=== PATIENT | male | born 1975 | race Two or more races ===

== ENCOUNTER 2022-10-29 07:05 | Day surgery (SDC) | payer OTHER ==
[2022-10-23 16:04] LABS: BASOPHILS # (AUTO) 0.1 X10'3 (0-0.2); BASOPHILS % (AUTO) 0.7 % (0-1); EOSINOPHILS # (AUTO) 0.1 X10'3 (0-0.9); LYMPHOCYTES # (AUTO) 2.3 X10'3 (1.1-4.8); LYMPHOCYTES % (AUTO) 32.7 % (21-51); MEAN CORPUSCULAR HEMOGLOBIN 30.9 PG (27.0-31.0); MEAN CORPUSCULAR HGB CONC 33.8 g/dL (33.0-36.5); MEAN CORPUSCULAR VOLUME 91.4 FL (78-98); MEAN PLATELET VOLUME 7.9 FL (7.4-10.4); MONOCYTES # (AUTO) 0.6 X10'3 (0-0.9); MONOCYTES % (AUTO) 8.8 % (2-12); NEUTROPHILS # (AUTO) 4.1 X10'3 (1.8-7.7); NEUTROPHILS % (AUTO) 56.8 % (42-75); PRE OP HEMOGLOBIN 15.9 g/dL (14.0-17.9); PRE OP PLATELET COUNT 284 X10'3 (140-440); RED BLOOD COUNT 5.14 X10'6 (4.70-6.10); RED CELL DISTRIBUTION WIDTH 13.7 % (11.5-14.5)
[2022-10-23 16:23] LABS: ALBUMIN 4.3 G/DL (3.4-5.0); ALBUMIN/GLOBULIN RATIO 1.1 (1.1-1.5); ALKALINE PHOSPHATASE 52 IU/L (46-116); BLOOD UREA NITROGEN 16 MG/DL (7-18); BUN/CREATININE RATIO 19.8 (5.4-32.0); CALCIUM 9.1 MG/DL (8.5-10.1); CHLORIDE 103 MMOL/L (99-107); CREATININE 0.81 MG/DL (0.60-1.10); PRE OP ALT 24 U/L (30-65); PRE OP ANION GAP 10 (8-16); PRE OP AST 14 U/L (10-37); PRE OP GLUCOSE 100 MG/DL (70-104); PRE OP POTASSIUM 4.1 MMOL/L (3.4-5.1); PRE OP SODIUM 140 MMOL/L (135-145); TOTAL CARBON DIOXIDE 27.4 MMOL/L (24-32); TOTAL PROTEIN 8.3 G/DL (6.4-8.2); eGFR > 90 ML/MIN
[2022-10-29] VITALS (29 sets, daily range): BP systolic 99–140; BP diastolic 61–96
[~2022-10-29] VITALS: Ht 167.6 cm; Wt 88.0 kg
[2022-10-29] MEDS: potassium cl 20mEq in 1/2 NS 1,000 ML IV SCH ×4 (06:50→17:20)
[~2022-10-29 07:05] MED LIST: BACL10TA2 PO; HYDR-3964 PO; HYDROmorphone 1 mg/ml syringe IV PRN; HYDROmorphone inj. 0.5 MG/0.5 ML DISP.SYRIN IV PRN; acetaminophen 325mg tablet PO ONE; acetaminophen 325mg tablet PO PRN; baclofen 10mg tablet PO PRN; bisacodyl 10mg suppository rectal RC PRN; ceFAZolin inj. 2,000 MG in dextrose 5%-water 100 ML IV ONE; celeCOXIB 100mg capsule PO ONE; diphenhydrAMINE 25mg capsule PO PRN; famotidine 20mg tablet PO ONE; gabapentin 300mg capsule PO ONE; magnesium hydroxide 30ml (MOM) UD suspension PO PRN; metoclopramide 5 mg/ml inj IV ONE; naloxone 0.4 mg/ml inj IV PRN; ondansetron/PF 4mg/2ml inj IV PRN; oxyCODONE SR 10mg (sust. release) tab -2 tabs (20mg) PO ONE; tranexamic acid inj. 1,000 MG in normal saline 100ml IV soln 90 ML IV ONE; tranexamic acid inj. 1,000 MG in normal saline IV soln 100ML IV ONE; vancomycin 1,500 MG in NS 300ml IV soln IV ONE
--- NOTE | 2022-10-29 07:49 | NUR ---
csm intact, pulses marked, viseo watched, ointment not ordered
[2022-10-29] MEDS: ringers solution, lacted 1,000 ML IV SCH ×3 (07:53→16:55)
[2022-10-29] MEDS ORDERED: ketorolac trometh. 30mg/ml inj. ONE (09:52)
[2022-10-29] MEDS ORDERED: ROPIVAcaine 0.5% (5mg/ml) 30ml vial ONE ×2 (09:52→11:48)
[2022-10-29] MEDS ORDERED: epiNEPHrine 1 mg/ml inj ONE (09:53)
[2022-10-29] MEDS ORDERED: vancomycin 1,000mg inj ONE (09:53)
[2022-10-29] MEDS ORDERED: cloNIDine hcl/PF 100mcg/ml inj ONE (09:53)
[2022-10-29] MEDS ORDERED: fentaNYL/PF 50MCG/1 ML 2ML syringe ONE (10:13)
[2022-10-29] MEDS ORDERED: MIDAZolam 1 MG/ML 5ML VIAL ONE (10:13)
[2022-10-29] MEDS ORDERED: epiNEPHrine 1 mg/ml inj SQ ONE (10:30)
[2022-10-29] MEDS ORDERED: cloNIDine hcl/PF 100mcg/ml inj EP ONE (10:30)
[2022-10-29] MEDS ORDERED: ketorolac trometh. 30mg/ml inj. IV ONE (10:30)
[2022-10-29] MEDS ORDERED: ROPIVAcaine 0.5% (5mg/ml) 30ml vial IJ ONE (10:30)
[2022-10-29] MEDS ORDERED: meperidine/PF 25mg/ml syringe IV PRN ×3 (11:30)
[2022-10-29] MEDS ORDERED: ondansetron/PF 4mg/2ml inj IV PRN (11:30)
[2022-10-29] MEDS ORDERED: ringers solution, lacted 1,000 ML IV SCH (11:30)
[2022-10-29] MEDS ORDERED: ROPIVAcaine 0.2% (10 MG/5 ML) BOLUS INJECTION ADDCANAL PRN (11:30)
[2022-10-29] MEDS ORDERED: morphine 2 MG/ML inj. syringe IV PRN (11:30)
[2022-10-29] MEDS ORDERED: morphine 4 MG/ML inj SYRINge IV PRN (11:30)
[2022-10-29] MEDS ORDERED: proCHLORperazine 10 MG/2 ml inj IV PRN (11:30)
[2022-10-29] MEDS ORDERED: ROPIVAcaine 0.2%/PF PUMP/bolus 545 ML ADDCANAL SCH (11:30)
[2022-10-29] MEDS: ROPIVAcaine 0.2%/PF PUMP/bolus 545 ML ADDCANAL SCH ×2 (11:31→17:41)
[2022-10-29] MEDS ORDERED: propofol inj 20 ML IV ONE ×2 (11:48)
--- NOTE | 2022-10-29 12:21 | NUR ---
Received from OR via HOSPITAL BED , accompanied by Anesthesiologist and report given by Anesthesiolgist SUNSHINE. PT ARRIVES, AAOX4, RA, VSS, NO REPORTS OF PAIN. BULL BLINKING GREEN AND PATENT, ICE TO LEFT KNEE WITH KNEE WRAP.SENSATION AND MOVEMENT TO ALL EXTREMITIES.
[2022-10-29] MEDS: gabapentin 300mg capsule PO SCH ×2 (13:00→20:41)
[2022-10-29] MEDS ORDERED: tranexamic acid inj. 1,000 MG in normal saline 100ml IV soln 90 ML IV ONE (14:00)
--- NOTE | 2022-10-29 15:11 | NUR ---
PT TRANSFERRED TO FLOOR, ROOM 360A WITHOUT INCIDENT, PT HAS NO BELONGINGS WITH THEM. UPDATED ON PLAN OF CARE. BED IN LOW POSITION, CALL LIGHT WITHIN REACH. Addendum: 10/29/22 at 1632 by José Miguel Schaffer RN Amended: Links added.
[2022-10-29] MEDS: HYDROcodone/acetaminophen 10/325mg tab PO PRN ×2 (16:08→20:41)
--- NOTE | 2022-10-29 16:32 | NUR ---
Care transferred to [facility] HELPER Debby
--- NOTE | 2022-10-29 16:49 | NUR ---
Patient received from OR. IV in place. ONQ pump at bedside. SCDS set up and placed on patient. Lower bed elevated. tolerated a regular diet. Pain 9/10 on assessment PRN given. All safety measures in place and call light in reach. Will continue to monitor.
--- NOTE | 2022-10-29 17:02 | NUR ---
Spoke to Gricel in Recovery and she will have José Miguel JAMES come to the floor and scan patients ONJovana gaming for administration,.
[2022-10-29] MEDS ORDERED: VANCOMYCIN 1,500MG inj. 1,500 MG in normal saline 500ml IV soln 300 ML IV ONE (20:00)
[2022-10-29] MEDS: ascorbic acid 500mg tablet PO SCH (20:41)
[2022-10-29] MEDS ORDERED: sennosides 8.6mg tablet PO SCH (21:00)
[2022-10-30] MEDS ORDERED: LORazepam 2 mg/ml vial IV ONE (01:00)
[2022-10-30] MEDS: HYDROcodone/acetaminophen 10/325mg tab PO PRN ×3 (03:27→11:22)
[2022-10-30 04:59] LABS: BASOPHILS % (AUTO) 0.3 % (0-1); EOSINOPHILS # (AUTO) 0.1 X10'3 (0-0.9); EOSINOPHILS % (AUTO) 0.8 % (0-6); HEMATOCRIT 36.9 % (42.0-52.0); HEMOGLOBIN 12.6 g/dl (14.0-17.9); LYMPHOCYTES # (AUTO) 1.6 X10'3 (1.1-4.8); LYMPHOCYTES % (AUTO) 21.7 % (21-51); MEAN CORPUSCULAR HEMOGLOBIN 31.2 PG (27.0-31.0); MEAN CORPUSCULAR HGB CONC 34.2 g/dL (33.0-36.5); MEAN CORPUSCULAR VOLUME 91.3 FL (78-98); MEAN PLATELET VOLUME 7.5 FL (7.4-10.4); MONOCYTES % (AUTO) 13.1 % (2-12); NEUTROPHILS # (AUTO) 4.9 X10'3 (1.8-7.7); NEUTROPHILS % (AUTO) 64.1 % (42-75); PLATELET COUNT 234 X10'3 (140-440); RED BLOOD COUNT 4.04 X10'6 (4.70-6.10); RED CELL DISTRIBUTION WIDTH 13.3 % (11.5-14.5); WHITE BLOOD COUNT 7.6 X10'3 (4.5-11.0)
[2022-10-30 05:14] LABS: ANION GAP 6 (8-16); CHLORIDE 106 MMOL/L (99-107); POTASSIUM 4.1 MMOL/L (3.5-5.1); SODIUM 140 MMOL/L (135-145); TOTAL CARBON DIOXIDE 27.9 MMOL/L (24-32)
[2022-10-30 06:00] VITALS: BP 141/96
--- NOTE | 2022-10-30 06:15 | NUR ---
Problems reprioritized. Patient report given, questions answered & plan of care reviewed with ERIKA Monique.
--- NOTE | 2022-10-30 06:30 | NUR ---
Patient in room [facility]. I have received report from Angie Parks RN and had the opportunity to ask questions and assume patient care.
[2022-10-30] MEDS: gabapentin 300mg capsule PO SCH (07:21)
[2022-10-30] MEDS: ascorbic acid 500mg tablet PO SCH (07:22)
[2022-10-30] MEDS ORDERED: multivitamins, therapeutics tablet PO SCH (08:00)
[2022-10-30] MEDS ORDERED: aspirin 325mg tablet PO SCH (08:30)
--- NOTE | 2022-10-30 11:00 | NUR ---
I have reviewed and agree with interventions, assessments, and documentation by Eneida Landa LVN.
--- NOTE | 2022-10-30 11:30 | NUR ---
Patient was discharged today by Addy Hairston. Discharge instructions were explained to patient and . All questions were answered. Patient helped him to get dressed. IV was removed by RN. All patient belongings were gathered. Patient is alert, orientated and appropriate for discharge. Patient was wheeled downstair to the entry way of the hospital and helped into private vehicle. Patient left with in private vehicle.
--- NOTE | 2022-10-30 11:56 | NUR ---
Joint surgery consult: Pt s/p L knee surgery this admit per EMR. Pt/SO seen by ADRIAN for written/verbal high protein diet ed w/ RD contact information provided. ADRIAN encouraged pt/SO to contact dietitian's office if further nutrition questions/concerns. Addendum: 10/30/22 at [address] Amended: Links added.
[2022-10-30] MEDS ORDERED: celeCOXIB 100mg capsule PO SCH (20:00)
== END 2022-10-30 11:43 | disposition home or self-care (01) ==
LOC: PAS 07:05 → SUR 3N 16:00 → UNDOADMIN 16:09 → SUR 3N 16:09 → PAS 10-30 11:43
PROVIDERS: ATTEND Orthopaedic Surgery
DX: M17.12 Unilateral primary osteoarthritis, left knee (principal); M21.062 Valgus deformity, not elsewhere classified, left knee; I10 Essential (primary) hypertension; F32.89 Other specified depressive episodes; E11.59 Type 2 diabetes mellitus with other circulatory complications; F41.9 Anxiety disorder, unspecified; K21.9 Gastro-esophageal reflux disease without esophagitis; G89.18 Other acute postprocedural pain; E66.01 Morbid (severe) obesity due to excess calories; Z68.30 Body mass index [BMI] 30.0-30.9, adult; Z79.82 Long term (current) use of aspirin; Z79.84 Long term (current) use of oral hypoglycemic drugs; Z79.899 Other long term (current) drug therapy; Z98.890 Other specified postprocedural states; Z72.89 Other problems related to lifestyle; Z98.84 Bariatric surgery status
CPT/HCPCS: 27447; 36415; 64448; 73560; 80051; 80053; 82948; 85025; 86885; 86900; 86901; 87081; 97110; 97116; 97161; A6258; C1713; C1776; J0171; J0690; J0735; J1885; J2250; J2704; J2765; J2795; J3010; J3370; J3480; J3490; J7030; J7040; J7060; J7120; Z7506; Z7508; Z7512; 97530; A4215; A6449; A7000; G0378